=== PATIENT | female | born 2000 ===

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

== ENCOUNTER 2020-01-31 12:12 | Emergency (ER) | payer MEDICAID, OTHER ==
[~2020-01-31] VITALS: Ht 160 cm; Wt 72.6 kg
[2020-01-31 12:23] VITALS: BP 104/67
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
[2020-01-31] MEDS ORDERED: Methocarbamol 500mg tab ORAL ONE (12:45)
--- NOTE | 2020-01-31 12:55 | NUR ---
HAND-OFF: Report given to cedrick garcia.
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
[2020-01-31] MEDS ORDERED: IBUPROFEN600 MG ORAL (13:01)
[2020-01-31] MEDS ORDERED: TYLENOL EXTRA500 MG ORAL (13:01)
[2020-01-31] MEDS ORDERED: ROBAXIN-750750 MG PO (13:01)
[2020-01-31 13:15] VITALS: BP 110/70
--- NOTE | 2020-01-31 13:15 | NUR ---
ER DISCHARGE NOTE: Patient is cleared to be discharged per ERMD, pt is aox4, on room air, with stable vital signs. pt was given dc and prescription instructions, pt was able to verbalize understanding, pt id band removed. pt is able to ambulate with steady gait. pt took all belongings.
== END 2020-01-31 13:23 | disposition home or self-care (01) ==
LOC: EMR 12:35
DX: S16.1XXA Strain of muscle, fascia and tendon at neck level, initial encounter (principal); M54.5 Low back pain; V43.62XA Car passenger injured in collision with other type car in traffic accident, initial encounter; Y92.411 Interstate highway as the place of occurrence of the external cause
CPT/HCPCS: 99282